=== PATIENT | female | born 1965 | race Caucasian/White ===

== ENCOUNTER 2018-05-25 07:42 | Day surgery (SDC) | payer OTHER, SELFPAY ==
--- NOTE | 2018-05-25 | PATH_ITS ---
[facility] Accession Number: [id number] . 01 Material submitted: . PART A: CECAL POLYP PART B: DESCENDING COLON POLYP . 02 Diagnosis: A. Cecal Polyp: Colonic mucosa with prominent benign lymphoid aggregate. Negative for serrated lesion, dysplasia or malignancy. . B. Descending Colon Polyp: Tubular adenoma. MRV/05/27/2018 . 02 Electronically signed: . Geoff Lokce MD, PhD, Pathologist NPI- [id number] . 01 Gross description: . Part A: CECAL POLYP: Received in formalin is 1 fragment(s) of espinoza, soft tissue measuring 0.5 x 0.4 x 0.2 cm submitted entirely in 1 cassette(s) Part B: DESCENDING COLON POLYP: Received in formalin are 2 fragment(s) of espinoza, soft tissue measuring 0.5 x 0.3 x 0.2 cm to 0.3 x 0.1 x 0.1 cm submitted entirely in 1 cassette(s) /CKI /CKI . 02 Pathologist provided ICD-10: D12.4, K63.5 . 02 CPT . 247511, [id number] Performed at: [facility] [address] [facility], [place], [place] [id number] MD Major Baca MD Phone: [phone] Performed at: 02 [facility] [address] [place], [place] [id number] MD Huber Hernandez MD Phone: [phone]
--- NOTE | 2018-05-25 08:17 | PM.HP.1 ---
History of Present Illness Date Patient Seen: 05/25/18 Chief complaint: [id number] Narrative: 52-year-old female here for colon cancer screening. There is no family history of colon cancer colon polyps. There are no current active GI issues or large symptoms Meds Home Medications Medication Instructions Recorded Confirmed Type Acyclovir (#ZOVIRAX) #0 06/12/11 History acyclovir 400 mg PO Q DAY PRN #0 06/12/11 History Review of Systems Review of Systems All systems reviewed & are unremarkable except as noted in HPI and below Exam Narrative Exam Narrative: General: Patient is well developed, not in apparent distress Cardiovascular: Regular rate and rhythm, no murmurs, rubs, or gallops; no evidence of edema; no palpable abdominal aortic aneurysm Gastrointestinal: Normoactive bowel sounds, soft, nontender, nondistended, no rebound tenderness, no hepatosplenomegaly, no evidence of hernia Assessment & Plan Plan: Assessment/Plan Narrative: 52-year-old female here for average risk colon cancer screening Regarding the procedure(s), the risks and potential complications, benefits, and alternatives (including not doing the procedure) were discussed with the patient. The risks include but are not limited to bleeding, infection, perforation which may require surgical intervention, missed lesions, and adverse reactions to sedative medicines. After a question and answer period, the patient agreed to proceed with the procedure(s) and gives informed consent.
[2018-05-25 08:28] VITALS: BP 144/86; PULSE 60; RESP 16; TEMP 36.2; O2SAT 99; BMI 26.9
[2018-05-25] MEDS: SODIUM CHLORIDE 0.9% 1,000 ML 70 ML IV (08:44)
[2018-05-25] MEDS: MIDAZOLAM 5 MG/5 ML VIAL IV (09:10)
[2018-05-25] MEDS: fentaNYL 250 MCG/5 ML INJ IV (09:11)
[2018-05-25 09:22] VITALS: BP 123/77; PULSE 56; RESP 10; TEMP 36; O2SAT 96
--- NOTE | 2018-05-25 09:22 | PM.OP.ENDO ---
Operative Date/Time/Diagnoses Date of procedure: 05/25/18 Procedure Notes Procedure in detail: Surgeon: Young Beckman MD Procedure: Colonoscopy with polypectomy Preoperative diagnosis: Average risk colon cancer screening; primary colonoscopy Postoperative diagnosis: 2 colon polyp status post polypectomy, sigmoid diverticulosis, internal hemorrhoids Medications: Conscious sedation using 6 mg IV of Midazolam and 150 mcg IV of Fentanyl Preanesthesia Assessment An H and P was performed/updated and the Px?s ASA class is 1. The procedure was discussed in detail with the patient. The potential risks and complications including infection, bleeding, missed lesions, perforation, need for surgery in case of perforation, prolonged hospital stay, and were explained. A brief question and answer period was allotted and once all questions were answered, informed consent was obtained. The patient was brought back to the procedure room and placed on standard monitoring. The patient?s vital signs were monitored continuously throughout the entire procedure. Prior to starting, a timeout was performed to confirm the patient?s identity, allergies, medications, and procedure. Procedure in detail The patient was placed in left lateral decubitus position and once adequate sedation was obtained a EMIL was performed. The digital rectal examination did not reveal any palpable lesions. The tip of the colonoscope was placed in the anal canal and advanced without difficulty all the way to the cecum which was identified by the appendiceal orifice and the ileocecal valve. Careful examination of all car of the colon was performed with irrigation of any residual stool. In the cecum there is note of a 3 mm sessile polyp which was removed in its entirety by means of a cold Jumbo forceps with minimal bleeding. In the descending colon there was note of a 3 mm sessile polyp which was removed in its entirety by means of a cold Jumbo forceps with minimal bleeding There was note of few small diverticula in the sigmoid colon Retroflexion was performed in the rectum which revealed grade 1 internal hemorrhoids. The patient tolerated the procedure well and will be brought back to the recovery area to be discharged once criteria are met. The prep was judged to be good/excellent and adequate to identify polyps less than 5 mm. The withdrawal time was 12 min. The total procedure time from initial sedation was 21 min. Complications There were no complications and estimated blood loss was minimal. Recommendations: Resume previous diet Continue outPx medications Follow up pathology results Repeat colonoscopy in 5 or 10 years depending on pathology results An emergency contact number was given to the patient for any complications related to the procedure
[2018-05-25 09:27] VITALS: BP 119/73; PULSE 54; RESP 8; O2SAT 97
--- NOTE | 2018-05-25 09:28 | PM.DS.1 ---
History of Present Illness Chief complaint: [id number] Narrative: 52-year-old female here for colon cancer screening. There is no family history of colon cancer colon polyps. There are no current active GI issues or large symptoms Discharge Providers Discharge provider: Young Beckman MD Exam Vital Signs (past 8 hours): - 05/25/18 08:28 05/25/18 09:27 Temperature 97.2 F L 96.8 F L Pulse Rate 60 56 L Respiratory Rate 16 10 L Blood Pressure 144/86 H 123/77 Pulse Oximetry 99 96 Oxygen Delivery Method Room Air Narrative Exam Narrative: General: Patient is well developed, not in apparent distress Cardiovascular: Regular rate and rhythm, no murmurs, rubs, or gallops; no evidence of edema; no palpable abdominal aortic aneurysm Gastrointestinal: Normoactive bowel sounds, soft, nontender, nondistended, no rebound tenderness, no hepatosplenomegaly, no evidence of hernia Discharge Plan Discharge Plan Patient Disposition: Home Discharge comment: Discharge patient with a copy of procedure report Remove IV prior to discharge Discharge to home once criteria are met (soft abdomen, stable vital signs, no abdominal pain, tolerating p.o., if Px has flatus) Discharge Med Rec/Prescriptions Prescriptions: Continue Acyclovir (#ZOVIRAX) Qty: 0 RF: 0 acyclovir 400 MG tablet 400 mg PO Q DAY PRN Qty: 0 RF: 0 Discharge Orders: Discharge (Order); Ordered 05/25/18 Ordered By: Young Beckman Provider Discharge Instructions Diet: Diet as Tolerated Visit Report/Discharge Packet Stand Alone Forms: Surgery Discharge Discharge Data Attending Provider: Young Beckman
[2018-05-25 09:32] VITALS: BP 133/81; PULSE 57; RESP 12; O2SAT 98
[2018-05-25 09:45] VITALS: BP 156/86; PULSE 68; RESP 16; TEMP 36; O2SAT 99
== END 2018-05-25 09:58 | disposition home or self-care (01) ==
PROVIDERS: Visit Provider Internal Medicine Gastroenterology
PROC: 0DJD8ZZ Inspection of Lower Intestinal Tract, Via Natural or Artificial Opening Endoscopic (ICD-10-PCS; CPT 45378; principal; 2018-05-25 09:00)
DX: Z12.11 Encounter for screening for malignant neoplasm of colon (principal); K57.30 Diverticulosis of large intestine without perforation or abscess without bleeding; K64.8 Other hemorrhoids; D12.4 Benign neoplasm of descending colon; K63.5 Polyp of colon
CPT/HCPCS: 45380; J2250; J3010

== ENCOUNTER → 2020-07-29 14:36 | Outpatient (CLI) | payer OTHER, SELFPAY ==
--- NOTE | 2020-07-29 | DI.US.S_ITS ---
PROCEDURE: US PELVIC COMPLETE INDICATIONS: STRONG FAMILY HISTORY OVARIAN CANCER TECHNIQUE: Real-time scanning was performed of the pelvic organs, with image documentation. Additional endovaginal scanning was necessary due to incomplete visualization of the adnexal and endometrial structures by transabdominal scanning. COMPARISON: [facility], , PELVIC COMPLETE, 09/18/2009, 14:20. [facility], , PELVIC COMPLETE, 05/29/2011, 8:29. FINDINGS: Transabdominal scanning: Limited scanning through the kidneys shows no hydronephrosis. No pathologic free abdominal or pelvic fluid. Endovaginal scanning: Uterus: Uterus is normal in size at 5.9 x 3.2 x 5.3 cm. The endometrium measures 2 mm in combined thickness. Subcentimeter fibroids are seen. Ovaries: The ovaries are not ideally seen. The right ovary measures 1.3 x 1.6 x 0.7 cm. The left ovary measures 1.1 x 0.7 x 1 cm. The ovaries have a normal sonographic appearance. No adnexal masses are seen. IMPRESSION: No ovarian masses are seen on these images. Dictated by: Delvis Mckeon M.D. on 07/29/2020 at 15:32 Approved by: Delvis Mckeon M.D. on 07/29/2020 at 15:46
== END ==
PROVIDERS: PCP Internal Medicine; Referring Provider Internal Medicine; Visit Provider Internal Medicine
DX: Z12.73 Encounter for screening for malignant neoplasm of ovary (principal); Z80.41 Family history of malignant neoplasm of ovary
CPT/HCPCS: 76830; 76856

== ENCOUNTER → 2021-07-04 11:59 | Outpatient (CLI) | payer OTHER, SELFPAY ==
--- NOTE | 2021-07-04 | DI.RAD.S_ITS ---
PROCEDURE: XR ANKLE RT MIN 3V INDICATIONS: Pain in right ankle and joints of right foot TECHNIQUE: 3 views of the ankle were acquired. COMPARISON: None. FINDINGS: Bones: No fractures or dislocations. Ankle mortise is normally aligned. No suspicious bony lesions. Small plantar calcaneal enthesophyte. Soft tissues: No tibiotalar joint effusion. Achilles tendon appears normal. IMPRESSION: No acute osseous abnormality. Dictated by: Freddy Pearce M.D. on 07/04/2021 at 12:59 Approved by: Freddy Pearce M.D. on 07/04/2021 at 13:00
== END ==
PROVIDERS: PCP Internal Medicine; Referring Provider Student in an Organized Health Care Education/Training Program; Visit Provider Student in an Organized Health Care Education/Training Program
DX: M25.571 Pain in right ankle and joints of right foot (principal)
CPT/HCPCS: 73610

== ENCOUNTER → 2023-01-21 13:00 | Outpatient (CLI) | payer OTHER, SELFPAY ==
--- NOTE | 2023-01-21 | DI.CT.S_ITS ---
PROCEDURE: CT HEAD/BRAIN WO CON INDICATIONS: HEAD INJURY TECHNIQUE: Noncontrast 4.5 mm thick angled axial sections acquired from the foramen magnum to the vertex, with coronal and sagittal reformats. For radiation dose reduction, the following was used: automated exposure control, adjustment of mA and/or kV according to patient size. COMPARISON: [facility], , XR MANDIBLE MIN 4V, 01/21/2023, 13:08. FINDINGS: Image quality: Excellent. CSF spaces: Basal cisterns are patent. No extra-axial fluid collections. Ventricles are normal in size and shape. Brain: No midline shift. No intracranial masses or hemorrhage. Bo-white matter interface is normal. Skull and face: Calvarium and visualized facial bones are intact, without suspicious lesions. Sinuses: Visualized sinuses and mastoids are clear. IMPRESSION: Normal noncontrast head CT, without acute intracranial hemorrhage. Dictated by: Delvis Mckeon M.D. on 01/21/2023 at 12:47 Approved by: Delvis Mckeon M.D. on 01/21/2023 at 12:48
--- NOTE | 2023-01-21 | DI.RAD.S_ITS ---
PROCEDURE: XR MANDIBLE MIN 4V INDICATIONS: JAW PAIN TECHNIQUE: 4 views of the mandible were acquired. COMPARISON: [facility], CT, CT HEAD/BRAIN WO CON, 01/21/2023, 13:13. FINDINGS: Bones: No fractures or dislocations. No suspicious bony lesions. Soft tissues: Visualized sinuses appear clear. No suspicious soft tissue densities. IMPRESSION: No displaced fractures can be seen on these plain films. If there is strong clinical concern for a facial bone fracture that is not seen on these images, please consider a dedicated maxillofacial CT for further evaluation. Dictated by: Delvis Mckeon M.D. on 01/21/2023 at 16:20 Approved by: Delvis Mckeon M.D. on 01/21/2023 at 16:21
== END ==
PROVIDERS: PCP Internal Medicine; Referring Provider Internal Medicine; Visit Provider Internal Medicine
DX: S01.91XA Laceration without foreign body of unspecified part of head, initial encounter (principal); S09.90XA Unspecified injury of head, initial encounter; R51.9 Headache, unspecified; R68.84 Jaw pain; X58.XXXA Exposure to other specified factors, initial encounter
CPT/HCPCS: 70110; 70450

== ENCOUNTER 2023-07-22 09:24 | Day surgery (SDC) | payer OTHER, SELFPAY ==
[2023-07-22 09:48] VITALS: BMI 29.0
[2023-07-22 10:00] VITALS: BP 148/87; PULSE 72; RESP 18; TEMP 36.6; O2SAT 97
--- NOTE | 2023-07-22 10:30 | P.HP_ITS ---
History of Present Illness History of Present Illness Date Patient Seen: 07/22/23 Time Patient Seen: 10:31 Chief complaint: Colonoscopy Narrative: Stephie is a 57-year-old woman who had a colonoscopy [address] Beckman with findings of 2 adenomas. No family history of colon cancer. [facility], [facility] Social History household members: friend(s) and other Smoking Status: Former smoker alcohol intake: current Meds Home Medications and Allergies Home Medications Medication Instructions Recorded Confirmed Type dextroamphetamine-amphetamine ER 5 1 cap PO DAILY 07/22/23 07/22/23 History mg 24hr capsule,extend release Allergies Allergy/AdvReac Type Severity Reaction Status Date / Time epinephrine AdvReac Verified 07/22/23 09:46 Exam Vital Signs (past 8 hours): - 07/22/23 10:00 Temperature 97.9 F Pulse Rate 72 Respiratory Rate 18 Blood Pressure 148/87 H Pulse Oximetry 97 Oxygen Delivery Method Room Air Oxygen Delivery Method Room Air Const General: No acute distress Resp Effort & Inspection: normal respiratory effort Assessment & Plan Assessment and plan (1) History of colon polyps: Status: Acute Plan We reviewed the risks and benefits of colonoscopy for history of colon polyps and she would like to proceed.
--- NOTE | 2023-07-22 10:54 | P.OP.COLON_ITS ---
Operative Date/Time/Diagnoses Date of procedure: 07/22/23 Time of procedure: 10:54 Pre-op diagnosis: History of polyps Post-op diagnosis: same Procedure & Clinicians Study performed: Colonoscopy Same procedure as scheduled: Yes Surgeon: Bakari Jaffe Procedure Notes Procedure in detail: Surgeon: Bakari Jaffe MD Anesthesia: Abbey Castaneda CRNA Procedure: The patient was brought to the endoscopy suite, placed in left lateral decubitus position. The patient was connected to monitoring devices. A time-out was performed. Sedation was administered. Once the patient was adequately sedated, a digital rectal exam was performed and was normal. The scope was then inserted and advanced to the cecum where the appendiceal orifice was identified and photographed. The scope was then slowly withdrawn over greater than 6 minutes. The mucosa was thoroughly inspected. No polyps were f ound. The scope was retroflexed in the rectum. No abnormalities were seen. The scope was straightened and removed. The patient was awakened and brought to recovery. Scope withdrawal time: 7 minutes Sedation time: 15 minutes EBL: 0 Findings: Normal colon Post-procedure Disposition: PACU
[2023-07-22 10:56] VITALS: BP 129/88; PULSE 82; RESP 16; TEMP 36.2; O2SAT 98
[2023-07-22 11:00] VITALS: BP 129/88; PULSE 84; RESP 16; O2SAT 98
[2023-07-22 11:07] VITALS: BP 125/72; PULSE 75; RESP 16; TEMP 36.2; O2SAT 98
== END 2023-07-22 11:16 | disposition home or self-care (01) ==
PROVIDERS: PCP Internal Medicine; Referring Provider Surgery; Visit Provider Surgery
PROC: 0DJD8ZZ Inspection of Lower Intestinal Tract, Via Natural or Artificial Opening Endoscopic (ICD-10-PCS; CPT 45378; principal; 2023-07-22 10:30)
DX: Z12.11 Encounter for screening for malignant neoplasm of colon (principal); Z86.010 Personal history of colon polyps
CPT/HCPCS: 45378; J2704

== ENCOUNTER → 2023-07-29 13:43 | Outpatient (CLI) | payer OTHER, SELFPAY ==
--- NOTE | 2023-07-29 | DI.MRI.S_ITS ---
PROCEDURE: MR SHOULDER RT WO CON INDICATIONS: Pain in right shoulder TECHNIQUE: Noncontrast oblique coronal T2 fast spin echo with fat saturation, oblique sagittal T1 spin echo and T2 fast spin echo with fat saturation, axial T1 spin echo and T2 fast spin echo with fat saturation through the shoulder. COMPARISON: None. FINDINGS: Image quality: Excellent. Rotator cuff: Low to moderate grade articular and bursal surface partial thickness tear involving distal supraspinatus at its insertion on the humeral head is seen extending to musculotendinous junction. Distal infraspinatus and subscapularis tendinosis is seen. No full-thickness rotator cuff tendon rupture. Sagittal images demonstrate very mild supraspinatus muscle atrophy. Bones and bursae: No bone marrow contusions or fractures. Mild to moderate acromioclavicular joint osteoarthritic changes are seen with joint space narrowing and downward osteophyte formation depressing the musculotendinous junction of supraspinatus. The acromion demonstrates conventional anatomy, without an os acromiale. Small amount of joint effusion and subacromial subdeltoid bursal fluid is seen. No gross loose bodies. Capsule and soft tissues: Subtle fraying of anterior inferior labrum with T2 hyperintense signal at 5 to 6 o'clock position is seen concerning for subtle anterior inferior labral tear. The long head of the biceps tendon demonstrates normal location and morphology. The rotator interval appears normal, without fibrosis. The coracohumeral ligament is normal in thickness. IMPRESSION: 1. Low to moderate grade articular and bursal surface partial thickness tear involving distal supraspinatus extending to musculotendinous junction. Distal infraspinatus and subscapularis tendinosis. No full-thickness rotator cuff tendon rupture. Very mild supraspinatus muscle atrophy. 2. [id number] acromioclavicular joint osteoarthritis. Small amount of joint effusion and subacromial subdeltoid bursal fluid. No gross loose bodies. 3. Subtle anterior inferior labral tear at 5 to 6 o'clock position. Dictated by: Conor Asif M.D. on 07/29/2023 at 20:25 Approved by: Conor Asif M.D. on 07/29/2023 at 20:28
== END ==
PROVIDERS: PCP Internal Medicine; Referring Provider Internal Medicine; Visit Provider Internal Medicine
DX: M75.111 Incomplete rotator cuff tear or rupture of right shoulder, not specified as traumatic (principal); M19.011 Primary osteoarthritis, right shoulder; M25.511 Pain in right shoulder; M25.411 Effusion, right shoulder; G89.29 Other chronic pain
CPT/HCPCS: 73221